=== PATIENT | male | born 1960 | race Caucasian/White ===

== ENCOUNTER 2023-07-24 07:45 | Outpatient (CLI) | payer OTHER, SELFPAY | END 2023-07-24 07:46 | disposition home or self-care (01) | LOC: NFLDREF 07-27 17:27 | PROVIDERS: PCP Internal Medicine; Referring Provider Family Medicine; Visit Provider Internal Medicine | DX: Z13.9 Encounter for screening, unspecified (principal); Z13.6 Encounter for screening for cardiovascular disorders; Z12.5 Encounter for screening for malignant neoplasm of prostate | CPT/HCPCS: 80053; 80061; 84153 ==

== ENCOUNTER 2023-08-10 09:50 | Outpatient (CLI) | payer OTHER, SELFPAY ==
--- NOTE | 2023-08-10 12:07 | W.ANESCHARGE ---
Anesthesia Charges Start Date/Time Anesthesia Start Date: 08/10/23 Anesthesia Start Time: 11:41 Stop Date/Time Anesthesia Stop Date: 08/10/23 Anesthesia Stop Time: 12:07
--- NOTE | 2023-08-10 13:38 | W.ANESCHARGE ---
Anesthesia Charges Start Date/Time Anesthesia Start Date: 08/10/23 Anesthesia Start Time: 11:41 Stop Date/Time Anesthesia Stop Date: 08/10/23 Anesthesia Stop Time: 12:07
== END 2023-08-10 09:51 | disposition home or self-care (01) ==
LOC: OP CLINIC 09:50
PROVIDERS: PCP Internal Medicine; Visit Provider Surgery
DX: Z12.11 Encounter for screening for malignant neoplasm of colon (principal); K57.30 Diverticulosis of large intestine without perforation or abscess without bleeding
CPT/HCPCS: 00811; 00812; 45378; J2704

== ENCOUNTER 2023-08-27 19:10 | Outpatient (CLI) | payer OTHER, SELFPAY ==
--- NOTE | 2023-09-02 13:40 | W.PM.SLEEP ---
Sleep Study Details Details Interpreting Provider: Barrington Date of Sleep Study: 08/27/23 Sleep Study Details: STUDY TYPE:? Home unattended ? BMI:? 22.9 ORDERING PROVIDER:Jose Pineda INDICATION:? Concerns about sleep apnea ? SLEEP SUMMARY:? Monitor time 444.5 minutes RESPIRATORY SUMMARY:? AHI 5.8 Low oxygen 91 Snoring 7.4% PERIODIC LIMB MOVEMENTS OF SLEEP:? Not recorded during home study CARDIAC:? Range 60-95, mean 69.7 beats per minute IMPRESSION:? Mild obstructive sleep apnea worse in the right lateral position. RECOMMENDATION: If patient is symptomatic treatment options could consist of CPAP, dental appliance, or airway expansion surgery.
== END 2023-08-27 19:11 | disposition home or self-care (01) ==
LOC: SLEEP 19:11
PROVIDERS: PCP Internal Medicine; Visit Provider Internal Medicine
DX: G47.33 Obstructive sleep apnea (adult) (pediatric) (principal)
CPT/HCPCS: 95806

== ENCOUNTER 2025-04-20 08:09 | Outpatient (CLI) | payer BC, SELFPAY | END 2025-04-20 08:10 | disposition home or self-care (01) | LOC: NFLDREF 04-21 07:58 | PROVIDERS: PCP Internal Medicine; Referring Provider Internal Medicine; Visit Provider Internal Medicine | DX: E78.5 Hyperlipidemia, unspecified (principal); Z12.5 Encounter for screening for malignant neoplasm of prostate | CPT/HCPCS: 80053; 80061; 82172; G0103 ==